=== PATIENT | female | born 1980 | race Hispanic/Latino ===

== ENCOUNTER 2016-06-21 18:18 | Emergency (ER) | payer SELFPAY ==
[~2016-06-21] VITALS: Ht 152.4 cm; Wt 59.0 kg
[~2016-06-21 18:18] MED LIST: ACYC200C PO; HYDR-700 PO; KETO-22 PO; MTC10T PO; ONDA-42 SL; PNT40TEC PO; POLY17PO23 PO; PRD20T PO; SULF1TAB38 PO; TRAM-21 PO; TRAM50TA2 PO
--- OUTSIDE RECORDS SUMMARY | 2016-06-21 18:23 | XMS REPORT ---
Author Author HEMA DAS Organization [employer] Address Unknown Phone Unavailable Care Team Providers Care Motor Lodge Clerk Name Role Phone HEMA DAS Unavailable Allergies No Known Allergies Problems Problem Type Condition Code Onset Dates Condition Status Problem Tobacco use Z72.0 Active Problem Tobacco abuse counseling Z71.6 Active Problem Routine gynecological examination Z01.419 Active Problem Insomnia G47.00 Active Problem Oral contraceptive pill surveillance Z30.41 Active Problem Premenstrual headache G43.829 Active Problem Environmental allergies Z91.09 Active Medications Medication Code System Code Instructions Start Date End Date Status Dosage Augmentin [facility] [address]-73 875-125 MG Orally every 12 hrs Jan 22, 2016 Feb 01, 2016 1 tablet Results No Known Results Summary Purpose eClinicalWorks Submission
[2016-06-21] MEDS ORDERED: FLEXERIL (18:31)
[2016-06-21] MEDS: DIAZEPAM 5 MG (VALIUM) TABLET PO ONE (18:45)
[2016-06-21] MEDS: KETOROLAC 60 MG/2 ML VIAL IM ONE (18:45)
--- NOTE | 2016-06-21 18:45 | ED Neck-Back Pain/Injury ---
General Chief Complaint: Head/Cervical Problems Stated Complaint: NECK PAIN Nursing Triage Note: L LATERAL NECK AND HEAD PAIN ONSET FRIDAY AFTER COOKING. WAS SEEN AT CLINIC ON 06/17 AND RECEIVED INJECTION AND RX FLEXERIL BUT STATES SHE'S NO BETTER AND MAYBE IS WORSE. Nursing Sepsis Screen: No Definite Risk Source of Information: Patient Exam Limitations: No Limitations History of Present Illness Time Seen by Provider: 18:42 Initial Comments to ER with left-sided head and neck pain. This began spontaneously during the day on Friday about a week ago. No injury, no fevers, no paresthesias. She's never had this happen before. She keeps her head tilted to the left side as that is a position of comfort. She was seen at [facility] on Friday and given a shot of something she does not know what and a prescription for Flexeril but denies any improvement. Location: C-Spine Timing/Duration: 1 Week Severity: Moderate Pain/Injury Location: Neck Associated Symptoms: denies symptoms Allergies and Home Medications Allergies Coded Allergies: No Known Drug Allergies (Verified , 01/13/07) Home Medications (Reported) Constitutional: see HPI EENTM: see HPI Respiratory: no symptoms reported Cardiovascular: no symptoms reported Genitourinary: no symptoms reported Musculoskeletal: see HPI muscle pain neck pain Skin: no symptoms reported Psychiatric/Neurological: No Symptoms Reported Past Kjxpfdj-Qdjocc-Ronuqf Hx Patient Social History Alcohol Use: Denies Use Recreational Drug Use: No Smoking Status: Never a Smoker Recent Foreign Travel: No Contact w/Someone Who Travel: No Recent Infectious Disease Expo: No Recent Hopitalizations: No Seasonal Allergies Seasonal Allergies: No Surgeries HX Surgeries: Yes (LEFT ANKLE FX/ORIF) Surgeries: Section, Orthopedic Respiratory Hx Respiratory Disorders: No Cardiovascular Hx Cardiac Disorders: No Neurological Hx Neurological Disorders: No Reproductive System Hx Reproductive Disorders: No Genitourinary Hx Genitourinary Disorders: No Genitourinary Disorders: Kidney Stones Gastrointestinal Hx Gastrointestinal Disorders: No Gastrointestinal Disorders: Chronic Constipation Musculoskeletal Hx Musculoskeletal Disorders: No Endocrine Hx Endocrine Disorders: No HEENT HX ENT Disorders: No Cancer Hx Cancer: No Psychosocial Hx Psychiatric Problems: Yes Behavioral Health Disorders: Anxiety Integumentary HX Skin/Integumentary Disorder: No Blood Transfusions Hx Blood Disorders: No Adverse Reaction to a Blood Tr: No Physical Exam Vital Signs Vital Sign - Last 12Hours 06/21/16 18:22 Temp 98.2 Pulse 100 Resp 18 B/P 147/93 Pulse Ox 98 Capillary Refill : Less Than 3 Seconds General Appearance: No Apparent Distress WD/WN HEENT: PERRL/EOMI TMs Normal Neck: Limited Range of Motion (keeps head flexed to the left shoulder. She is able to turn her head to the right but this causes increased pain.) Respiratory: Normal Breath Sounds No Accessory Muscle Use No Respiratory Distress Gastrointestinal: Normal Bowel Sounds Non Tender Soft Extremity: Normal Capillary Refill Normal Inspection Neurologic/Psychiatric: Alert Oriented x3 Skin: Normal Color Warm/Dry Progress/Results/Core Measures Results/Orders My Orders Orders-MANDEEP AMBRIZ APRN Ketorolac Injection (Toradol Injection) (06/21/16 18:45) Diazepam Tablet (Valium Tablet) (06/21/16 18:45) Ct Head/Cervical Spine Wo (06/21/16 18:50) Medications Given in ED Current Medications Medications Dose Ordered Sig/Kelly Route Start Time Stop Time Status Last Admin Dose Admin Diazepam 5 mg ONCE ONCE PO 06/21/16 18:45 06/21/16 18:46 DC 06/21/16 18:45 5 MG Ketorolac Tromethamine 60 mg ONCE ONCE IM 06/21/16 18:45 06/21/16 18:46 DC 06/21/16 18:45 60 MG Vital Signs/I&O Vital Sign - Last 12Hours 06/21/16 18:22 Temp 98.2 Pulse 100 Resp 18 B/P 147/93 Pulse Ox 98 Blood Pressure Mean: 111 Departure Impression Impression: Primary Impression: Torticollis Disposition: 01 HOME, SELF-CARE Condition: Stable Departure-Patient Inst. Decision time for Depature: 18:51 Referrals: [facility] (PCP/Family) Primary Care Physician Patient Instructions: Torticollis, Adult Add. Discharge Instructions: 1. Medication as directed. Stop the flexeril. 2. Return to ER for any concerns 3. See your doctor next week All discharge instructions reviewed with patient and/or family. Voiced understanding. Scripts Diazepam (Valium)5 Mg Tablet5 Mg PO Q8H PRN MUSCLE SPASMS #5 TAB Prov:MANDEEP AMBRIZ APRN 06/21/16 MANDEEP AMBRIZ APRN Jun 21, 2016 18:45
[2016-06-21] MEDS ORDERED: DIAZ5TAB PO (18:54)
--- NOTE | 2016-06-21 19:42 | Diagnostic Imaging Report ---
PROCEDURE: CT head and CT cervical spine without contrast. TECHNIQUE: Multiple contiguous axial images were obtained through the brain and cervical spine without the use of intravenous contrast. Sagittal and coronal reformations through the cervical spine were then performed. INDICATION: Left-sided head and neck pain. COMPARISON: CT head without contrast 01/29/2013. FINDINGS: CT head: No intracranial hemorrhage, mass effect, hydrocephalus or extra-axial fluid collections. No evidence of acute infarction. Osseous structures are intact. The visualized paranasal sinuses, mastoids and orbits are negative. CT cervical spine: Normal alignment. No fractures. Vertebral body heights are maintained. No substantial spondylotic change. No neural impingement on this noncontrast exam. The visualized paravertebral soft tissues are negative. IMPRESSION: Negative CT head and cervical spine. Dictated by: Dictated on workstation # [id number]
[2016-06-21 20:01] VITALS: BP 121/79
== END 2016-06-21 20:01 | disposition home or self-care (01) ==
LOC: EDUNIT# 18:18 → ER 18:20
DX: M43.6 Torticollis (principal)
CPT/HCPCS: 70450; 72125; 96372; 99282

== ENCOUNTER 2017-05-22 21:58 | Emergency (ER) | payer SELFPAY ==
[~2017-05-22 21:58] MED LIST changes: +DIAZ5TAB PO; +FLEXERIL
--- OUTSIDE RECORDS SUMMARY | 2017-05-25 07:54 | XMS REPORT ---
Author Author HEMA DAS Organization [employer] Address Unknown Phone Unavailable Care Team Providers Care Expediter Service Order Name Role Phone HEMA DAS Unavailable Allergies [...] Start Date End Date Status Dosage Augmentin [facility] [address]-40 875-125 MG Orally every 12 hrs Jan 22, 2016 Feb 01, 2016 1 tablet Results No Known Results Summary Purpose eClinicalWorks Submission
--- OUTSIDE RECORDS SUMMARY | 2017-05-25 07:54 | XMS REPORT ---
Author Author DAS HEMA [facility] Address [address] [place] [address] Care Team Providers Care Airport Shuttle Driver Name Role Phone HEMA DAS Unavailable PROBLEMS Type Condition ICD9-CM Code LSD98-QG Code Onset Dates Condition Status SNOMED Code Problem Oral contraceptive pill surveillance Z30.41 Active 019839422 Assessment Routine gynecological examination Z01.419 Dec, Active 184859745 Problem Routine gynecological examination Z01.419 Active 806403645 Problem Tobacco use Z72.0 Active 723132143 Problem Environmental allergies Z91.09 Active 035000444 Problem Insomnia G47.00 Active 696149909 Problem Tobacco abuse counseling Z71.6 Active 52363049 Problem Premenstrual headache G43.829 Active 14213894 ALLERGIES Substance Reaction Event Type Date Status N.K.D.A. Unknown Non Drug Allergy Dec, Unknown SOCIAL HISTORY No smoking Hx information available PLAN OF CARE VITAL SIGNS Height 58 in 2016-01-08 Weight 145 lbs 2016-01-08 Heart Rate 80 bpm 2016-01-08 Respiratory Rate 17 2016-01-08 BMI 30.30 kg/m2 2016-01-08 Blood pressure systolic 118 mmHg 2016-01-08 Blood pressure diastolic 88 mmHg 2016-01-08 MEDICATIONS Medication Instructions Dosage Frequency Start Date End Date Duration Status Drospirenone-Ethinyl Estradiol 3-0.03 MG Orally Once a day 1 tablet 24h 10 Sep, 2014 28 days Active Mxxvdshwqr-ITJL-Iqmciypb 50-325-40 MG Orally every 4 hrs 1 tablet as needed 4h Dec, Active RESULTS Name Result Date Reference Range TRICHOMONAS (IN HOUSE) 2016-01-08 TRICHOMONAS negative + Control + Lot # [id number] Exp date 12/2016 BACTERIAL VAGINOSIS (IN HOUSE) 2016-01-08 RESULTS negative Control + Lot # [id number] Exp date 06/2016 PAP TEST, HPV IF ASCUS 2016-01-08 DIAGNOSIS: Specimen adequacy: Clinician provided ICD10: Performed by: . . Note: . CULTURE, GENITAL 2016-01-08 Genital Culture, Routine Preliminary report Result 1 Gram negative rods PDF Report 2016-01-08 PDF Report1 LCLS CULTURE, GENITAL 2016-01-08 Genital Culture, Routine Final report Result 1 Escherichia coli Result 2 Antimicrobial Susceptibility GC/CHLAM PROBE (STATE) 2016-01-08 CHLAMYDIA negative GC negative PROCEDURES Procedure Date Ordered Related Diagnosis Body Site Office Visit, Est Pt., Level 4 Jan 08, 2016 SPECIMEN HANDLING Jan 08, 2016 CULTURE, BACTERIA, OTHER Jan 08, 2016 No Charge Jan 08, 2016 TRICHOMONAS ASSAY W/OPTIC Jan 08, 2016 CAMPOS VAG, DNA, DIR PROBE Jan 08, 2016 IMMUNIZATIONS No Known Immunizations
--- OUTSIDE RECORDS SUMMARY | 2017-05-25 07:54 | XMS REPORT ---
Author HEMA Hwang Organization [employer] Address Unknown Phone Unavailable Care Team Providers Care Paintless Dent Repair Technician Name Role Phone HEMA DAS Unavailable Allergies [...] Instructions Start Date End Date Status Dosage Diflucan [facility] [address]-09 100 MG Orally Three times a Week(Friday, friday, and Friday) Feb 05, 2016 Feb 15, 2016 1 tablet Results No Known Results Summary Purpose eClinicalWorks Submission
--- OUTSIDE RECORDS SUMMARY | 2017-05-25 07:54 | XMS REPORT ---
Author Author GISSELLE BANG [facility] eClinical[employer] Address Unknown Phone Unavailable Care Team Providers Care Inspector Returned Materials Name Role Phone GISSELLE BANG Unavailable Allergies, Adverse Reactions, Alerts Substance Reaction Event Type N.K.D.A. Info Not Available Non Drug Allergy Problems Problem Type Condition Code Onset Dates Condition Status Assessment Urinary frequency R35.0 Active Assessment Vaginal irritation N89.8 Active Problem Oral contraceptive pill surveillance Z30.41 Active Assessment Oral contraceptive pill surveillance Z30.41 Active Assessment Routine screening for STI (sexually transmitted infection) Z11.3 Active Assessment Right lower quadrant abdominal pain R10.31 Active Medications Medication Code System Code Instructions Start Date End Date Status Dosage Naprosyn [facility] [address]-96 375 MG Orally Twice a day 1 tablet as needed Macrobid [facility] [address]-96 100 MG Orally every 12 hrs Apr 05, 2015Mar 1 capsule with food Procedures Procedure Coding System Code Date URINE CULTURE/COLONY COUNT CPT-4 49224 Apr 05, 2015 CULTURE, BACTERIA, OTHER CPT-4 62352 Apr 05, 2015 URINALYSIS, AUTO, W/O SCOPE CPT-4 53019 Apr 05, 2015 TRICHOMONAS ASSAY W/OPTIC CPT-4 79455 Apr 05, 2015 No Charge CPT-4 98807 Apr 05, 2015 Office Visit, Est Pt., Level 4 CPT-4 61759 Apr 05, 2015 Vital Signs Date/Time: Apr 05, 2015 Temperature 98.0 F Weight 140.6 lbs Height 58 in BMI 29.38 Index Blood Pressure Diastolic 70 mmHg Blood Pressure Systolic 106 mmHg Cardiac Monitoring Heart Rate 76 bpm Results No Known Results Summary Purpose eClinicalWorks Submission
--- OUTSIDE RECORDS SUMMARY | 2017-05-25 07:55 | XMS REPORT ---
Author HEMA Hwang [facility] eClinicalWorks Address Unknown Phone Unavailable Care Team Providers Care Child Nutrition Director Name Role Phone HEMA DAS Unavailable Allergies No Known Allergies Problems Problem Type Condition Code Onset Dates Condition Status Problem Insomnia G47.00 Active Problem Oral contraceptive pill surveillance Z30.41 Active Problem Environmental allergies Z91.09 Active Assessment Insomnia G47.00 Active Assessment Urinary frequency R35.0 Active Assessment Environmental allergies Z91.09 Active Medications Medication Code System Code Instructions Start Date End Date Status Dosage Drospirenone-Ethinyl Estradiol [facility] [address]-44 3-0.03 MG Orally Once a day September 21, 2014 1 tablet Diflucan [facility] [address]-64 100 MG Orally July 31, 2015 August 10, 2015 1 tablet Claritin-D 12 Hour [facility] [address]-48 5-120 MG Orally every 12 hrs JulyAugust 30, 2015 1 tablet as needed Amitriptyline HCl [facility] [address]-22 25 MG Orally Once a day at bedtime July 31, 2015 1 tablet Procedures Procedure Coding System Code Date GLYCATED HEMOGLOBIN TEST CPT-4 00439 July 31, 2015 Office Visit, Est Pt., Level 4 CPT-4 10439 July 31, 2015 URINALYSIS, AUTO, W/O SCOPE CPT-4 05107 July 31, 2015 Vital Signs Date/Time: July 31, 2015 Temperature 97.2 F Weight 142.6 lbs Height 58 in BMI 29.80 Index Blood Pressure Diastolic 76 mmHg Blood Pressure Systolic 118 mmHg Cardiac Monitoring Heart Rate 76 bpm Results Name Result Date Reference Range Unit Abnormality Flag A1C (IN HOUSE) ----A1C IN HOUSE 5.0 20150731 4.3 - 5.6 % ----Lot [id number] ----Exp date 20150731 UA LONG DIP (IN HOUSE) ----YANA 1+ 20150731 ----GLU Neg 20150731 ----SG >1.030 20150731 ----KET Neg 20150731 ----pH 5.5 20150731 ----Protein 1+ 20150731 ----BLO Neg [id number] ----PHIL Neg 20150731 ----Color yellow 20150731 ----Odor strong 20150731 ----Exp date 20150731 ----URO 0.2 20150731 ----NIT Neg 20150731 ----Clarity clear 20150731 ----Lot # [id number] Summary Purpose eClinicalWorks Submission
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
== END 2017-05-22 22:34 | disposition left against medical advice (07) ==
LOC: EDUNIT# 21:58 → ER 22:00
DX: R53.1 Weakness (principal); R20.0 Anesthesia of skin; R42 Dizziness and giddiness; H57.8 Other specified disorders of eye and adnexa

== ENCOUNTER 2018-01-31 10:28 | Emergency (ER) | payer SELFPAY ==
[~2018-01-31] VITALS: Ht 144.8 cm; Wt 65.3 kg
--- NOTE | 2018-01-31 11:12 | ED Back Pain ---
General Chief Complaint: Lower Extremity Stated Complaint: BURNING DOWN LEFT LEG Nursing Triage Note: ARRIVED VIA AMB TO ROOM 07. COMPLAINS OF PAIN/BURNING STARTING IN LEFT BUTTOCK ET RADIATES DOWN LEFT LEG FOR APPX 3MONTHS THAT IS WORSE THIS PAST WEEK. Nursing Sepsis Screen: No Definite Risk Source of Information: Patient Exam Limitations: No Limitations History of Present Illness Date Seen by Provider: Jan 31, 2018 Time Seen by Provider: 11:10 Initial Comments Patient is a 37-year-old female who presents to the emergency room with complaints of low back pain, burning sensation in her left buttocks that radiates down her left leg for approximately for the past 3 months. She reports the pain became intolerable over the past week. She denies loss of bowel or bladder, or numbness and tingling to her genital area. Location: Lumbar Spine Severity: Moderate Radiation: Buttocks, Lower Legs (left leg), Upper Legs (left leg) Method of Injury: Unknown Associated Symptoms: numbness in legs/feet, tingling in legs/feet, lower back pain; No loss of bladder control, No loss of bowel control Allergies and Home Medications Allergies Coded Allergies: No Known Drug Allergies (Verified , 01/13/07) Home Medications Cyclobenzaprine HCl 10 Mg Tablet, 10 MG PO TID Prescribed by: TAYLOR WORRELL on 01/31/18 1148 Diazepam 5 Mg Tablet, 5 MG PO Q8H PRN for MUSCLE SPASMS Prescribed by: MANDEEP AMBRIZ on 06/21/16 185 Prednisone 20 Mg Tab, 40 MG PO DAILY Prescribed by: TAYLOR WORRELL on 01/31/18 1148 Patient Home Medication List Home Medication List Reviewed: Yes Review of Systems Constitutional: see HPI; No chills, No fever : No Musculoskeletal: no symptoms reported, back pain (low back pain) Psychiatric/Neurological: See HPI, Numbness (radiates down left leg) All Other Systems Reviewed Negative Unless Noted: Yes Past Zfqnrll-Mtyqzr-Zmjxyg Hx Past Med/Social Hx: Reviewed Nursing Past Med/Soc Hx Patient Social History Recent Foreign Travel: No Contact w/Someone Who Travel: No Recent Infectious Disease Expo: No Recent Hopitalizations: No Seasonal Allergies Seasonal Allergies: No Past Medical History Section, Orthopedic Reproductive Disorders: No Kidney Stones Chronic Constipation Anxiety Adverse Reaction/Blood Tranf: No Family Medical History Reviewed Nursing Family Hx Physical Exam Vital Signs Vital Signs - First Documented 01/31/18 10:56 Temp 98.0 Pulse 81 Resp 16 B/P (MAP) 124/67 (86) Pulse Ox 97 O2 Delivery Room Air Capillary Refill : Less Than 3 Seconds Height, Weight, BMI Height: 4'9.00" Weight: 144lbs. oz. 65.528630fp; BMI Method:Stated General Appearance: No Apparent Distress, WD/WN Neck: Full Range of Motion, Normal Inspection, Non Tender, Supple Cardiovascular: Regular Rate, Rhythm, No Edema, No Gallop, No JVD, No Murmur, Normal Peripheral Pulses Respiratory: Chest Non Tender, Lungs Clear, Normal Breath Sounds, No Accessory Muscle Use, No Respiratory Distress, Accessory Muscle Use Back: Normal Inspection, No CVA Tenderness, No Vertebral Tenderness Neurologic/Psychiatric: Alert, Oriented x3, Normal Mood/Affect Skin: Normal Color, Warm/Dry Progress/Results/Core Measures Results/Orders My Orders Orders - GMTAYLOR Ketorolac Injection (Toradol Injection) (01/31/18 11:15) Orphenadrine Injection (Norflex Injectio (01/31/18 11:15) Prednisone Tablet (Deltasone Tablet) (01/31/18 11:15) Medications Given in ED Vital Signs/I&O 01/31/18 01/31/18 10:56 11:52 Temp 98.0 Pulse 81 81 Resp 16 16 B/P (MAP) 124/67 (86) 124/67 (86) Pulse Ox 97 97 O2 Delivery Room Air Room Air Blood Pressure Mean: 86 Progress Progress Note : Time: 11:40 Progress Note I have seen and evaluated the patient. She is pain free after medication administration. She agrees with plan of care, plans for discharge, Return precautions were given. Voices no questions or concerns. Departure Impression Primary Impression: Sciatica Disposition: 01 HOME, SELF-CARE Condition: Stable/Unchanged Departure-Patient Inst. Decision time for Depature: 11:45 Referrals: [facility] (PCP/Family) Primary Care Physician Patient Instructions: Sciatica (DC), Sciatica Exercises Add. Discharge Instructions: Take medications as directed. You may use ibuprofen and Tylenol as directed by the bottle for pain relief. Follow-up with [facility] within 1 week for recheck. Return back to the emergency room for any worsening symptoms or concerns as needed. All discharge instructions reviewed with patient and/or family. Voiced understanding. Scripts Prednisone (Prednisone) 20 Mg Tab 40 MG PO DAILY for 4 Days, #8 TAB Prov: TAYLOR WORRELL 01/31/18 Cyclobenzaprine HCl (Cyclobenzaprine HCl) 10 Mg Tablet 10 MG PO TID for Spasms, #14 TAB Prov: TAYLOR WORRELL 01/31/18 TAYLOR WORRELL Jan 31, 2018 11:12
[2018-01-31] MEDS ORDERED: ORPHENADRINE 60 MG/2 ML (NORFLEX) AMP IM ONE (11:15)
[2018-01-31] MEDS ORDERED: KETOROLAC 60 MG/2 ML VIAL IM ONE (11:15)
[2018-01-31] MEDS ORDERED: predniSONE 20 MG TAB PO ONE (11:15)
[2018-01-31] MEDS ORDERED: PRD20T PO (11:48)
[2018-01-31] MEDS ORDERED: CYCL10TA9 PO (11:48)
[2018-01-31 11:52] VITALS: BP 124/67
== END 2018-01-31 11:52 | disposition home or self-care (01) ==
LOC: EDUNIT# 10:28 → ER 10:30
DX: M54.42 Lumbago with sciatica, left side (principal); F41.9 Anxiety disorder, unspecified; Z79.52 Long term (current) use of systemic steroids; Z98.890 Other specified postprocedural states; Z87.442 Personal history of urinary calculi; Z87.19 Personal history of other diseases of the digestive system
CPT/HCPCS: 99284

== ENCOUNTER 2021-05-17 16:46 | Emergency (ER) | payer SELFPAY ==
[~2021-05-17] VITALS: Ht 147 cm; Wt 68.0 kg
[~2021-05-17 16:46] MED LIST changes: +CYCL10TA25 PO
[2021-05-17 16:48] VITALS: BP 151/102
[2021-05-17] MEDS ORDERED: ASPIRIN 81 MG CHEW (CHILDREN'S ASA) PO ONE (17:15)
[2021-05-17] MEDS ORDERED: ALPRAZolam 0.25 MG (XANAX) TAB PO ONE (17:15)
--- NOTE | 2021-05-17 17:22 | ED Neurological Problem ---
General Chief Complaint: Cardiac/General Problems Stated Complaint: CHEST PRESSURE/PAIN Nursing Triage Note: ARRIVED VIA AMB WITH COMPLAINTS OF CHEST PAIN X3-4 HOURS. ALSO COMPLAINS OF PALPITTIONS AND RIGHT ARM PAIN. Source: patient Exam Limitations: no limitations (MANDEEP AMBRIZ APRN) History of Present Illness Date Seen by Provider: May 17, 2021 Time Seen by Provider: 17:20 Initial Comments To ER by private vehicle accompanied by friend with reports of central chest pain and palpitations since about noon today. This actually started with right arm tingling in the fingers. That is still present but a little better. She also has some right leg heaviness. She has a right-sided headache. She is tearful on arrival. Family reports that she has a lot of stress at home. Timing/Duration: 4-6 hours Severity: moderate Associated Symptoms: denies symptoms (MANDEEP AMBRIZ APRN) Allergies and Home Medications Allergies Coded Allergies: No Known Drug Allergies (Verified , 01/13/07) Patient Home Medication List Home Medication List Reviewed: Yes (MANDEEP AMBRIZ APRN) Cyclobenzaprine HCl (Cyclobenzaprine HCl) 10 Mg Tablet, 10 MG PO TID Prescribed by: TAYLOR WORRELL on 01/31/18 1148 Diazepam (Valium) 5 Mg Tablet, 5 MG PO Q8H PRN for MUSCLE SPASMS Prescribed by: MANDEEP AMBRIZ on 06/21/16 1854 Prednisone (Prednisone) 20 Mg Tab, 40 MG PO DAILY Prescribed by: TAYLOR WORRELL on 01/31/18 1148 [Flexeril] , (Reported) Entered as Reported by: SERVANDO MOHAN on 06/21/16 1831 Review of Systems Review of Systems Constitutional: see HPI Eyes: No Symptoms Reported Ears, Nose, Mouth, Throat: no symptoms reported Respiratory: no symptoms reported Cardiovascular: no symptoms reported Genitourinary: no symptoms reported Musculoskeletal: no symptoms reported Skin: no symptoms reported Psychiatric/Neurological: See HPI, Anxiety, Headache Endocrine: No Symptoms Reported Hematologic/Lymphatic: No Symptoms Reported (MANDEEP AMBRIZ APRN) Past Yisojzp-Mjlqrl-Kqtwgb Hx Patient Social History Tobacco Use?: Yes Smoking Status: Current Everyday Smoker Alcohol Use?: No (MANDEEP AMBRIZ APRN) Immunizations Up To Date Second COVID19 Vaccination Chepe: 2 WEEKS AGO COVID19 Vaccine Kennel Assistant: MERY (MANDEEP AMBRIZ APRN) Seasonal Allergies Seasonal Allergies: No (MANDEEP AMBRIZ APRN) Past Medical History Surgeries: Yes (LEFT ANKLE FX/ORIF) Section, Orthopedic Respiratory: No Cardiac: No Neurological: No Reproductive Disorders: No Kidney Stones Gastrointestinal: No Chronic Constipation Musculoskeletal: No Endocrine: No Cancer: No Psychosocial: Yes Anxiety Integumentary: No Blood Disorders: No Adverse Reaction/Blood Tranf: No (MANDEEP AMBRIZ APRN) Physical Exam Vital Signs Vital Signs - First Documented 05/17/21 16:48 Temp 36.5 Pulse 96 Resp 16 B/P (MAP) 151/102 (118) Pulse Ox 97 O2 Delivery Room Air (NINA BANSAL MD) Vital Signs Capillary Refill : Less Than 3 Seconds (MANDEEP AMBRIZ APRN) Height, Weight, BMI Height: 4'9.00" Weight: 144lbs. oz. 65.044615gg; 31.00 BMI Method:Stated General Appearance: WD/WN, no apparent distress, other (He is sinus rhythm in the 80s on the monitoring manager. Blood pressure 155/96.) HEENT: PERRL/EOMI, normal ENT inspection, TMs normal Neck: non-tender, full range of motion Respiratory: normal breath sounds, no respiratory distress, no accessory muscle use Gastrointestinal: normal bowel sounds, non tender, soft Extremities: normal range of motion, non-tender Neurologic/Psychiatric: alert, normal mood/affect, oriented x 3 Crainal Nerves: normal hearing, normal speech, PERRL Skin: normal color, warm/dry (MANDEEP AMBRIZ APRN) Stroke Onset of Symptoms Date of Onset of Symptoms: May 17, 2021 Time of Symptom Onset: 12:00 Onset of Symptoms: Yes Symptoms onset unknown: No (MANDEEP AMBRIZ APRN) NIH Stroke Scale Assessment Select: Initial Level of Consciousness: 0=Alert (0), Level of Consciousness- Questions: 0=Answers both month/age (0), LOC Commands: 0=Performs both tasks (0), Visual Encarnacion: 0=No visual loss (0), Facial Movement (Facial Paresis): 0=Normal symmetrical mnt (0), Motor Function-Arms Right: 1=Drift (1), Motor Function-Arms Left: 0=No drift (0), Motor Function-Legs Right: 0=No drift (0), Motor Function-Legs Left: 0=No drift (0), Limb Ataxia: 0=Absent (0), Sensory: 1=Mild to Moderate loss (1), Best Language: 0=No aphasia (0), Dysarthria: 0=Normal (0), Extinction & Inattention: 0=No abnormality (0), Total: 2 Stroke Thrombolytic Exclusion Age 18 or Over: Yes Acute intenal hemorrhage: No History of CVA: No Uncontrolled Coagulation Defec: No Intracranial Hemorrhage: No Severe Hypertension: No GI or Bleed: No Subarachnoid Hemorrhage: No Intracranial Neoplasm/Aneurysm: No Oral Anticoagulants: No Surgery or Trauma: No Puncture of Non-Compressible V: No Recent CPR: No Diabetic Hemorrhagic Retinopat: No Organ Biopsy: No Recent Obstetric Delivery: No Glucose: No Significant Hepatic Dysfunctio: No NIH Stoke Scale >22: No Bacterial Endocarditis: No Pericarditis: No Improving Symptoms: No Platelets: No TPA Contraindication: No (MANDEEP AMBRIZ APRN) Progress/Results/Core Measures Results/Orders Lab Results Laboratory Tests Test 05/17/21 16:54 05/17/21 17:30 Range/Units White Blood Count 8.3 4.3-11.0 10^3/uL Red Blood Count 4.41 3.80-5.11 10^6/uL Hemoglobin 13.7 11.5-16.0 g/dL Hematocrit 40 35-52 % Mean Corpuscular Volume 91 80-99 fL Mean Corpuscular Hemoglobin 31 25-34 pg Mean Corpuscular Hemoglobin Concent 34 32-36 g/dL Red Cell Distribution Width 11.9 10.0-14.5 % Platelet Count 314 130-400 10^3/uL Mean Platelet Volume 8.4 L 9.0-12.2 fL Immature Granulocyte % (Auto) 0 % Neutrophils (%) (Auto) 61 42-75 % Lymphocytes (%) (Auto) 30 12-44 % Monocytes (%) (Auto) 6 0-12 % Eosinophils (%) (Auto) 2 0-10 % Basophils (%) (Auto) 0 0-10 % Neutrophils # (Auto) 5.1 1.8-7.8 10^3/uL Lymphocytes # (Auto) 2.5 1.0-4.0 10^3/uL Monocytes # (Auto) 0.5 0.0-1.0 10^3/uL Eosinophils # (Auto) 0.2 0.0-0.3 10^3/uL Basophils # (Auto) 0.0 0.0-0.1 10^3/uL Immature Granulocyte # (Auto) 0.0 0.0-0.1 10^3/uL Prothrombin Time 12.3 12.2-14.7 SEC INR Comment 0.9 0.8-1.4 Activated Partial Thromboplast Time 30 24-35 SEC D-Dimer <= 0.27 0.00-0.49 UG/ML Sodium Level 135 135-145 MMOL/L Potassium Level 3.6 3.6-5.0 MMOL/L Chloride Level 107 98-107 MMOL/L Carbon Dioxide Level 18 L 21-32 MMOL/L Anion Gap 10 5-14 MMOL/L Blood Urea Nitrogen 15 7-18 MG/DL Creatinine 0.81 0.60-1.30 MG/DL Estimat Glomerular Filtration Rate 94 BUN/Creatinine Ratio 19 Glucose Level 187 H 70-105 MG/DL Calcium Level 8.5 8.5-10.1 MG/DL Corrected Calcium 8.8 8.5-10.1 MG/DL Magnesium Level 1.8 1.6-2.4 MG/DL Total Bilirubin 0.3 0.1-1.0 MG/DL Aspartate Amino Transf (AST/SGOT) 12 5-34 U/L Alanine Aminotransferase (ALT/SGPT) 10 0-55 U/L Alkaline Phosphatase 67 40-136 U/L Myoglobin 14.6 10.0-92.0 NG/ML Troponin I < 0.028 <0.028 NG/ML B-Type Natriuretic Peptide 14.2 <100.0 PG/ML Total Protein 7.1 6.4-8.2 GM/DL Albumin 3.6 3.2-4.5 GM/DL Serum Test, Qualitative NEGATIVE NEGATIVE Urine Color ORANGE Urine Clarity CLEAR Urine pH 5.0 5-9 Urine Specific [place] 1.025 H 1.016-1.022 Urine Protein 1+ H NEGATIVE Urine Glucose (UA) TRACE H NEGATIVE Urine Ketones NEGATIVE NEGATIVE Urine Nitrite POSITIVE H NEGATIVE Urine Bilirubin NEGATIVE NEGATIVE Urine Urobilinogen 4.0 < = 1.0 MG/DL Urine Leukocyte Esterase NEGATIVE NEGATIVE Urine RBC (Auto) 1+ H NEGATIVE Urine RBC 0-2 /HPF Urine WBC 2-5 /HPF Urine Squamous Epithelial Cells 5-10 /HPF Urine Crystals NONE /LPF Urine Bacteria FEW H /HPF Urine Casts NONE /LPF Urine Mucus NEGATIVE /LPF Urine Culture Indicated YES (NINA BANSAL MD) Vital Signs/I&O 05/17/21 16:48 Temp 36.5 Pulse 96 Resp 16 B/P (MAP) 151/102 (118) Pulse Ox 97 O2 Delivery Room Air (NINA BANSAL MD) Blood Pressure Mean: 118 Departure Communication (Admissions) Family Conversation 193-heart rate 80 sinus blood pressure down to 140/90. She no longer has any tingling in the right arm or weakness of the arm. No longer has headache. Overall feels much better. We will send her on home and she agrees to return for any worsening or recurrent symptoms. NAME: SHANNON VELAZQUEZ [facility] REC#: [id number] PT STATUS: REG ER : 1980 PHYSICIAN: MANDEEP AMBRIZ APRN ADMIT DATE: 05/17/21/ER Draft Date of Exam:05/17/21 CT HEAD WO-R/O STROKE PROCEDURE: CT head wo r/o stroke. TECHNIQUE: Multiple contiguous axial images were obtained through the brain without the use of intravenous contrast. Auto Exposure Controls were utilized during the CT exam to meet ALARA standards for radiation dose reduction. INDICATION: 40-year-old female, chest pain x3 to 4 hours, palpitations, right arm pain. CORRELATION: None FINDINGS: There is no midline shift or mass effect. The ventricles and sulci are unremarkable. No evidence for acute intracranial hemorrhage, abnormal extra-axial fluid collections or cerebral edema is present. The basilar cisterns are unremarkable. The bony calvarium is intact. Probable small cyst or polyp left maxillary sinus. The visualized paranasal sinuses and mastoid air cells are otherwise clear. IMPRESSION: Negative appearing noncontrast CT of the head. Dictated on workstation # [id number] Dict: 05/17/211811 Trans: 05/17/21 181 DO [id number] Interpreted by: CARL POLLOCK DO Electronically signed by: (MANDEEP AMBRZI APRN) Impression Primary Impression: Anxiety Additional Impression: Paresthesia Disposition: HOME, SELF-CARE Condition: Stable Departure-Patient Inst. Decision time for Depature: 18:35 (MANDEEP AMBRIZ APRN) Referrals: [facility] [place] (PCP/Family) Primary Care Physician Patient Instructions: Anxiety, Adult ED Add. Discharge Instructions: 1. Return to ER for any concerns. Follow-up with your doctor next week. ATTENDING PHYSICIAN NOTE: I was physically present as attending physician in the emergency department during the care of this patient, but I was not directly involved in the decision making or delivery of care for this patient. (NINA BANSAL MD) MANDEEP AMBRIZ APRN May 17, 2021 17:22 NINA BANSAL MD May 19, 2021 06:41
[2021-05-17] MEDS ORDERED: NS 100 ML (IVPB) BAG IV ONE (17:30)
[2021-05-17] MEDS ORDERED: HOLD METFORMIN - RECEIVED CONTRAST 20 ML VIAL IV SCH (17:30)
[2021-05-17] MEDS ORDERED: IOHEXOL 350 MG/ML 100 ML (OMNIPAQUE 350) VIAL IV ONE (17:30)
[2021-05-17 17:38] LABS: BASOPHILS % (AUTO) 0 % (0-10); EOSINOPHILS # (AUTO) 0.2 10^3/uL (0.0-0.3); EOSINOPHILS % (AUTO) 2 % (0-10); HEMATOCRIT 40 % (35-52); HEMOGLOBIN 13.7 g/dL (11.5-16.0); LYMPHOCYTES # (AUTO) 2.5 10^3/uL (1.0-4.0); LYMPHOCYTES % (AUTO) 30 % (12-44); MEAN CORPUSCULAR HEMOGLOBIN 31 pg (25-34); MEAN CORPUSCULAR HGB CONC 34 g/dL (32-36); MEAN CORPUSCULAR VOLUME 91 fL (80-99); MEAN PLATELET VOLUME 8.4 fL (9.0-12.2); MONOCYTES # (AUTO) 0.5 10^3/uL (0.0-1.0); MONOCYTES % (AUTO) 6 % (0-12); NEUTROPHILS # (AUTO) 5.1 10^3/uL (1.8-7.8); NEUTROPHILS % (AUTO) 61 % (42-75); PLATELET COUNT 314 10^3/uL (130-400); WHITE BLOOD COUNT 8.3 10^3/uL (4.3-11.0)
[2021-05-17 17:39] LABS: BILIRUBIN,URINE NEGATIVE (NEGATIVE); CLARITY,URINE CLEAR; COLOR,URINE ORANGE; GLUCOSE, URINE (UA) TRACE (NEGATIVE); KETONES,URINE NEGATIVE (NEGATIVE); LEUKOCYTE ESTERASE ,URINE NEGATIVE (NEGATIVE); NITRITE,URINE POSITIVE (NEGATIVE); PROTEIN,URINE 1+ (NEGATIVE)
[2021-05-17 17:44] LABS: INR 0.9 (0.8-1.4); PROTHROMBIN TIME PATIENT 12.3 SEC (12.2-14.7)
[2021-05-17 17:51] LABS: BACTERIA,URINE FEW /HPF; RBC,URINE 0-2 /HPF
[2021-05-17 17:52] LABS: ALBUMIN 3.6 GM/DL (3.2-4.5); POTASSIUM 3.6 MMOL/L (3.6-5.0)
[2021-05-17 17:53] LABS: CALCIUM 8.5 MG/DL (8.5-10.1)
[2021-05-17 17:54] LABS: TOTAL PROTEIN 7.1 GM/DL (6.4-8.2)
[2021-05-17 17:56] LABS: BILIRUBIN,TOTAL 0.3 MG/DL (0.1-1.0)
[2021-05-17 17:58] LABS: CREATININE SERUM 0.81 MG/DL (0.60-1.30)
[2021-05-17 18:01] LABS: MAGNESIUM 1.8 MG/DL (1.6-2.4)
--- NOTE | 2021-05-17 18:14 | Diagnostic Imaging Report ---
INDICATION: Chest pain. COMPARISON: 08/31/2014. FINDINGS: Single frontal view of the chest demonstrates normal heart size and pulmonary vascularity. The lungs are well aerated and clear. No large pleural effusion or pneumothorax is seen. The visualized osseous structures show no acute abnormalities. IMPRESSION: No acute cardiopulmonary process. Dictated by: Dictated on workstation # [id number]
--- NOTE | 2021-05-17 18:14 | Diagnostic Imaging Report ---
PROCEDURE: CT head wo r/o stroke. TECHNIQUE: Multiple contiguous axial images were obtained through the brain without the use of intravenous contrast. Auto Exposure Controls were utilized during the CT exam to meet ALARA standards for radiation dose reduction. INDICATION: 40-year-old female, chest pain x3 to 4 hours, palpitations, right arm pain. CORRELATION: None FINDINGS: There is no midline shift or mass effect. The ventricles and sulci are unremarkable. No evidence for acute intracranial hemorrhage, abnormal extra-axial fluid collections or cerebral edema is present. The basilar cisterns are unremarkable. The bony calvarium is intact. Probable small cyst or polyp left maxillary sinus. The visualized paranasal sinuses and mastoid air cells are otherwise clear. IMPRESSION: Negative appearing noncontrast CT of the head. Dictated by: Dictated on workstation # [id number]
--- NOTE | 2021-05-17 18:46 | Diagnostic Imaging Report ---
PROCEDURE: CT angiography of the head and CT angiography of the neck with and without contrast. TECHNIQUE: Contiguous noncontrast images were obtained from the skull base through the vertex. After intravenous contrast administration, helical CT angiography of the neck was performed. Source data was reformatted into 3D MIP projections. Delayed post contrast acquisition was also obtained. Auto Exposure Controls were utilized during the CT exam to meet ALARA standards for radiation dose reduction. INDICATION: 40-year-old female, right arm and leg weakness. Chest pain x3 to 4 hours. Heart palpitations. COMPARISON: None FINDINGS: There is prominent metallic streak artifact from dental catholic. CTA NECK: Aorta: Aortic arch is limited in evaluation with artifact present. Does appear relatively normal, with standard three vessel branching pattern. Right Common/Internal/External Carotid Artery: Patent and without significant stenosis. Left Common/Internal/External Carotid Artery: Patent and without significant stenosis. Vertebral arteries: Codominant. Patent and without significant stenosis. Non-vascular: No concerning cervical lymphadenopathy. The airway is patent. CTA HEAD: Anterior Circulation: The intracranial internal carotid arteries are patent. The bilateral middle cerebral arteries are patent and without stenosis. The anterior cerebral arteries are patent and without stenosis. Posterior Circulation: The bilateral intracranial segments of the vertebral arteries are patent. The basilar artery is patent and without stenosis. The posterior cerebral arteries are patent. Post Contrast Head: No concerning enhancement on delayed post-contrast imaging. IMPRESSION: 1. Negative CTA of the head. 2. Negative CTA of the neck. Dictated by: Dictated on workstation # [id number]
[2021-05-17] MEDS ORDERED: ALPRAZolam 0.25 MG (XANAX) TAB ONE (18:55)
== END 2021-05-17 19:58 | disposition home or self-care (01) ==
LOC: EDUNIT# 16:46 → ER 16:49
DX: F41.9 Anxiety disorder, unspecified (principal); R20.2 Paresthesia of skin; F17.290 Nicotine dependence, other tobacco product, uncomplicated
CPT/HCPCS: 36415; 70450; 70496; 70498; 71045; 80053; 81000; 83735; 83874; 83880; 84484; 84703; 85025; 85379; 85610; 85730; 87088; 93005; 93041

== ENCOUNTER 2022-06-18 17:27 | Emergency (ER) | payer SELFPAY ==
[~2022-06-18] VITALS: Ht 149.8 cm; Wt 68.0 kg
[2022-06-18] MEDS ORDERED: ASPIRIN 81 MG CHEW (CHILDREN'S ASA) PO ONE (18:00)
--- NOTE | 2022-06-18 18:12 | Diagnostic Imaging Report ---
INDICATION: Chest pain. COMPARISON: Exam compared to 05/17/2021. FINDINGS: The lungs are clear. There is no failure, effusion, or pneumothorax. IMPRESSION: No acute-appearing abnormality. Dictated by: Dictated on workstation # [id number]
[2022-06-18 18:13] LABS: BILIRUBIN,URINE NEGATIVE (NEGATIVE); CLARITY,URINE CLEAR; COLOR,URINE YELLOW; GLUCOSE, URINE (UA) NEGATIVE (NEGATIVE); KETONES,URINE NEGATIVE (NEGATIVE); LEUKOCYTE ESTERASE ,URINE TRACE (NEGATIVE); NITRITE,URINE NEGATIVE (NEGATIVE); PH,URINE 6.5 (5-9); PROTEIN,URINE NEGATIVE (NEGATIVE)
--- NOTE | 2022-06-18 18:20 | ED Cardiac General ---
History of Present Illness General Chief Complaint: COVID19 Suspect/Confirmed Stated Complaint: COVID + - CHEST PAIN Nursing Triage Note: PT BROUGHT IN BY [facility] FROM [facility] WITH COMPLAINT OF CP, SOA, AND COVID +. STATES SYMPTOMS STARTED THIS AM. GIVEN 324 ASA AT [facility]. NITROPASTE APPLIED BY EMS (MARCIO MERCADO) History of Present Illness Date Seen by Provider: Jun 18, 2022 Time Seen by Provider: 17:35 Initial Comments 42 year old female reports palpable anterior chest pain with SOA. She is COVID + and complains of pain over her entire body. I can palpate her chest, arms, cheek, or leg and she reports it hurts. She denies n/v/d, SOA, or diaphoresis. She resolved the first 2 COVID vaccines but did not has not received a booster. She was not started on medications for COVID by [facility]. She works at [employer]. Timing/Duration: 24 hours Prior CP/Workup: no prior chest pain NTG SL FREIGHT BOOKER: Yes ASA po FREIGHT BOOKER: Yes Associated Systoms: No Chest Pain; Cough; No Diaphoresis, No Fever/Chills; Headaches, Malaise; No Nausea/Vomiting, No Seizure, No Shortness of Air, No Syncope; Weakness (MARCIO MERCADO) Allergies and Home Medications Allergies Coded Allergies: No Known Drug Allergies (Verified , 01/13/07) Patient Home Medication List Home Medication List Reviewed: Yes (MARCIO MERCADO) Cyclobenzaprine HCl (Cyclobenzaprine HCl) 10 Mg Tablet, 10 MG PO TID Prescribed by: TAYLOR WORRELL on 01/31/18 1148 Diazepam (Valium) 5 Mg Tablet, 5 MG PO Q8H PRN for MUSCLE SPASMS Prescribed by: MANDEEP AMBRIZ on 06/21/16 185 Prednisone (Prednisone) 20 Mg Tab, 40 MG PO DAILY Prescribed by: TAYLOR WORRELL on 01/31/18 1148 [Flexeril] , (Reported) Entered as Reported by: SERVANDO MOHAN on 06/21/16 183 Review of Systems Review of Systems Constitutional: see HPI, chills, malaise, weakness Respiratory: No Symptoms Reported, See HPI Cardiovascular: No Symptoms Reported, See HPI Gastrointestinal: No Symptoms Reported, See HPI (MARCIO MERCADO) All Other Systems Reviewed Negative Unless Noted: Yes (MARCIO MERCADO) Past Xejmoqt-Zvflxd-Wzprqp Hx Patient Social History Tobacco Use?: Yes Tobacco type used: Cigarettes Smoking Status: Current Everyday Smoker Use of E-Cig and/or Vaping dev: No Substance use?: No Alcohol Use?: No Pt feels they are or have been: No (MARCIO MERCADO) Immunizations Up To Date First/Initial COVID19 Vaccinat: 2 WEEKS AGO Second COVID19 Vaccination Chepe: 2 WEEKS AGO Third COVID19 Vaccination Date: 2 WEEKS AGO (MARCIO MERCADO) Seasonal Allergies Seasonal Allergies: No (MARCIO MERCADO) Past Medical History Surgeries: Yes (LEFT ANKLE FX/ORIF) Section, Orthopedic Respiratory: No Cardiac: No Neurological: No Reproductive Disorders: No Kidney Stones Gastrointestinal: No Chronic Constipation Musculoskeletal: No Endocrine: No Cancer: No Psychosocial: Yes Anxiety Integumentary: No Blood Disorders: No Adverse Reaction/Blood Tranf: No (MARCIO MERCADO) Family Medical History Reviewed Nursing Family Hx (MARCIO MERCADO) Physical Exam Vital Signs Vital Signs - First Documented 06/18/22 17:29 Temp 38.0 Pulse 92 Resp 23 B/P (MAP) 137/96 (110) Pulse Ox 98 O2 Delivery Room Air (NINA BANSAL MD) Vital Signs Capillary Refill : Less Than 3 Seconds (MARCIO MERCADO) Height, Weight, BMI Height: 4'9.00" Weight: 144lbs. oz. 65.599835ll; 30.00 BMI Method:Stated General Appearance: WD/WN, Mild Distress HEENT: PERRL/EOMI, TMs Normal, Normal ENT Inspection, Pharynx Normal Neck: Full Range of Motion, Normal Inspection, Non Tender, Supple Respiratory: Lungs Clear, Normal Breath Sounds, Other (Chest wall tender, right and left. Along with anywhere I palpate on her body being tender. ) Cardiovascular: Regular Rate, Rhythm, No Edema, No Murmur Gastrointestinal: Normal Bowel Sounds, Non Tender, Soft Neurologic/Psychiatric: Alert, Oriented x3, No Motor/Sensory Deficits, Normal Mood/Affect Skin: Normal Color, Warm/Dry (MARCIO MERCADO) Progress/Results/Core Measures Results/Orders Lab Results Laboratory Tests Test 06/18/22 18:00 06/18/22 18:05 Range/Units Urine Color YELLOW Urine Clarity CLEAR Urine pH 6.5 5-9 Urine Specific [place] 1.015 L 1.016-1.022 Urine Protein NEGATIVE NEGATIVE Urine Glucose (UA) NEGATIVE NEGATIVE Urine Ketones NEGATIVE NEGATIVE Urine Nitrite NEGATIVE NEGATIVE Urine Bilirubin NEGATIVE NEGATIVE Urine Urobilinogen 0.2 < = 1.0 MG/DL Urine Leukocyte Esterase TRACE H NEGATIVE Urine RBC (Auto) TRACE-I H NEGATIVE Urine RBC RARE /HPF Urine WBC 2-5 /HPF Urine Squamous Epithelial Cells 10-25 H /HPF Urine Crystals NONE /LPF Urine Bacteria FEW H /HPF Urine Casts NONE /LPF Urine Mucus SMALL H /LPF Urine Culture Indicated NO White Blood Count 7.1 4.3-11.0 10^3/uL Red Blood Count 4.20 3.80-5.11 10^6/uL Hemoglobin 12.9 11.5-16.0 g/dL Hematocrit 37 35-52 % Mean Corpuscular Volume 88 80-99 fL Mean Corpuscular Hemoglobin 31 25-34 pg Mean Corpuscular Hemoglobin Concent 35 32-36 g/dL Red Cell Distribution Width 12.7 10.0-14.5 % Platelet Count 249 130-400 10^3/uL Mean Platelet Volume 8.0 L 9.0-12.2 fL Immature Granulocyte % (Auto) 0 % Neutrophils (%) (Auto) 77 H 42-75 % Lymphocytes (%) (Auto) 15 12-44 % Monocytes (%) (Auto) 6 0-12 % Eosinophils (%) (Auto) 1 0-10 % Basophils (%) (Auto) 0 0-10 % Neutrophils # (Auto) 5.5 1.8-7.8 10^3/uL Lymphocytes # (Auto) 1.1 1.0-4.0 10^3/uL Monocytes # (Auto) 0.4 0.0-1.0 10^3/uL Eosinophils # (Auto) 0.1 0.0-0.3 10^3/uL Basophils # (Auto) 0.0 0.0-0.1 10^3/uL Immature Granulocyte # (Auto) 0.0 0.0-0.1 10^3/uL Prothrombin Time 12.5 12.2-14.7 SEC INR Comment 0.9 0.8-1.4 Activated Partial Thromboplast Time 28 24-35 SEC D-Dimer 0.49 0.00-0.49 UG/ML Sodium Level 139 135-145 MMOL/L Potassium Level 3.0 L 3.6-5.0 MMOL/L Chloride Level 106 98-107 MMOL/L Carbon Dioxide Level 24 21-32 MMOL/L Anion Gap 9 5-14 MMOL/L Blood Urea Nitrogen 15 7-18 MG/DL Creatinine 0.81 0.60-1.30 MG/DL Estimat Glomerular Filtration Rate 93 BUN/Creatinine Ratio 19 Glucose Level 87 70-105 MG/DL Calcium Level 8.4 L 8.5-10.1 MG/DL Corrected Calcium 8.7 8.5-10.1 MG/DL Magnesium Level 1.7 1.6-2.4 MG/DL Total Bilirubin 0.4 0.1-1.0 MG/DL Aspartate Amino Transf (AST/SGOT) 19 5-34 U/L Alanine Aminotransferase (ALT/SGPT) 17 0-55 U/L Alkaline Phosphatase 57 40-136 U/L Myoglobin 32.1 10.0-92.0 NG/ML Troponin I < 0.028 <0.028 NG/ML C-Reactive Protein High Sensitivity 0.13 0.00-0.50 MG/DL Total Protein 6.9 6.4-8.2 GM/DL Albumin 3.6 3.2-4.5 GM/DL (NINA BANSAL MD) Vital Signs/I&O 06/18/22 06/18/22 06/18/22 06/18/22 17:29 17:29 18:54 19:51 Temp 38.0 38.0 38.0 37.4 Pulse 92 93 Resp 23 22 B/P (MAP) 137/96 (110) Pulse Ox 98 98 O2 Delivery Room Air Room Air 06/18/22 20:40 Temp 37.4 Pulse 97 Resp 20 B/P (MAP) 99/66 Pulse Ox 98 O2 Delivery Room Air (NINA BANSAL MD) Blood Pressure Mean: 110 Progress Progress Note : Time: 17:35 Progress Note Patient assessed, will obtain EKG, chest x-ray, labs and give normal saline 1 L per IV. Patient had aspirin prior to arrival. She is complaining of myalgias, will give ibuprofen 800 mg. 1824 cardiac work-up negative. Patient denies chest pain. She is taking water. 1899 patient complains of headache, will give Tylenol 650 mg orally. Blood pressure has decreased (90s/60s) admission, will give second liter of normal saline. Potassium 3.0. Will give oral potassium 20 mill equivalents. 1944 patient reports improvement in headache and body aches. Labs were all normal. Second liter of fluids infused, patient taking water and ice chips. Blood pressure improved 112-120/70-80. HR 80s. Discharge instructions and return precautions reviewed with the patient. (MARCIO MERCADO) Initial ECG Impression Date: Jun 18, 2022 Initial ECG Impression Time: 17:31 Initial ECG Rate: 95 Initial ECG Rhythm: Normal Sinus Initial ECG Intervals: Normal Initial ECG Intervals NV 128, QRST 97, QT 341, QTc 429. [place] P -17, QRS 2, T13. Initial ECG Impression: Normal Initial ECG Comparisson: Unchanged (MARCIO MERCADO) Diagnostic Imaging Diagonstic Imaging: Xray Plain Films/CT/US/NM/MRI: chest Comments NAME: SHANNON VELAZQUEZ [facility] REC#: [id number] PT STATUS: REG ER : 1980 PHYSICIAN: MARCIO MERCADO ADMIT DATE: 06/18/22/ER Draft Date of Exam:06/18/22 CHEST 1 VIEW, AP/PA ONLY INDICATION: Chest pain. COMPARISON: Exam compared to 05/17/2021. FINDINGS: The lungs are clear. There is no failure, effusion, or pneumothorax. IMPRESSION: No acute-appearing abnormality. Dictated on workstation # [id number] Dict: 06/18/[id number] Trans: 06/18/221811 [id number] [id number] Interpreted by: LALITHA DIEZ Electronically signed by: Reviewed: Reviewed by Me (MARCIO MERCADO) Departure Impression Primary Impression: COVID-19 Additional Impression: Myalgia Disposition: 01 HOME, SELF-CARE Condition: Stable Departure-Patient Inst. Decision time for Depature: 19:45 (MARCIO MERCADO) Referrals: [facility] (PCP/Family) Primary Care Physician Patient Instructions: COVID-19 (DC) Add. Discharge Instructions: Rest, increase fluids and ambulate for 5 to 10 minutes every hour while awake. Alternate Tylenol 650 mg and ibuprofen 600 mg every 4 hours. Follow-up with primary care provider if symptoms are not improving or worsen. Return to the emergency department for new, urgent healthcare problems. All discharge instructions reviewed with patient and/or family. Voiced understanding. ATTENDING PHYSICIAN NOTE: I was physically present as attending physician in the emergency department during the care of this patient, but I was not directly involved in the decision making or delivery of care for this patient. (NINA BANSAL MD) MARCIO MERCADO Jun 18, 2022 18:20 NINA BANSAL MD Jun 19, 2022 00:24
[2022-06-18 18:30] LABS: BASOPHILS % (AUTO) 0 % (0-10); EOSINOPHILS # (AUTO) 0.1 10^3/uL (0.0-0.3); EOSINOPHILS % (AUTO) 1 % (0-10); HEMATOCRIT 37 % (35-52); HEMOGLOBIN 12.9 g/dL (11.5-16.0); LYMPHOCYTES # (AUTO) 1.1 10^3/uL (1.0-4.0); LYMPHOCYTES % (AUTO) 15 % (12-44); MEAN CORPUSCULAR HEMOGLOBIN 31 pg (25-34); MEAN CORPUSCULAR HGB CONC 35 g/dL (32-36); MEAN CORPUSCULAR VOLUME 88 fL (80-99); MONOCYTES # (AUTO) 0.4 10^3/uL (0.0-1.0); MONOCYTES % (AUTO) 6 % (0-12); NEUTROPHILS # (AUTO) 5.5 10^3/uL (1.8-7.8); NEUTROPHILS % (AUTO) 77 % (42-75); PLATELET COUNT 249 10^3/uL (130-400); WHITE BLOOD COUNT 7.1 10^3/uL (4.3-11.0)
[2022-06-18] MEDS ORDERED: IBUPROFEN 800 MG (MOTRIN) TAB PO STA (18:30)
[2022-06-18] MEDS ORDERED: NS IV 1000 ML 1,000 ML IV SCH ×2 (18:30→19:45)
[2022-06-18 18:31] LABS: BACTERIA,URINE FEW /HPF; RBC,URINE RARE /HPF
[2022-06-18 18:47] LABS: ALBUMIN 3.6 GM/DL (3.2-4.5); INR 0.9 (0.8-1.4); PROTHROMBIN TIME PATIENT 12.5 SEC (12.2-14.7)
[2022-06-18 18:49] LABS: CALCIUM 8.4 MG/DL (8.5-10.1)
[2022-06-18 18:50] LABS: TOTAL PROTEIN 6.9 GM/DL (6.4-8.2)
[2022-06-18 18:52] LABS: BILIRUBIN,TOTAL 0.4 MG/DL (0.1-1.0)
[2022-06-18 18:54] LABS: CREATININE SERUM 0.81 MG/DL (0.60-1.30)
[2022-06-18 18:56] LABS: MAGNESIUM 1.7 MG/DL (1.6-2.4)
[2022-06-18] MEDS ORDERED: KCL 10 MEQ TAB (MICRO K) PO STA (19:00)
[2022-06-18] MEDS ORDERED: ACETAMINOPHEN 500 MG TAB (TYLENOL) PO STA (19:44)
[2022-06-18 20:40] VITALS: BP 99/66
== END 2022-06-18 20:40 | disposition home or self-care (01) ==
LOC: EDUNIT# 17:27 → ER 17:28
DX: U07.1 COVID-19 (principal); R06.02 Shortness of breath; R05.9 Cough, unspecified; M79.10 Myalgia, unspecified site; F17.210 Nicotine dependence, cigarettes, uncomplicated
CPT/HCPCS: 36415; 71045; 80053; 81000; 83735; 83874; 84484; 85025; 85379; 85610; 85730; 86141; 93005; 93041

== ENCOUNTER 2022-07-17 22:21 | Emergency (ER) | payer SELFPAY ==
[~2022-07-17] VITALS: Ht 149.9 cm; Wt 69.4 kg
[2022-07-17 22:29] VITALS: BP 131/106
--- NOTE | 2022-07-17 22:56 | ED Psychosocial ---
General Chief Complaint: Psych/Social Disorder Stated Complaint: ANXIETY PHYCH ISSUE Nursing Triage Note: PT AMB TO ED BY POV WITH C/O DEPRESSION. PT MOTHER THIS MORNING AND PT HAS BEEN CRYING UNCONTROLLABLY ALL DAY. PT IS URDU SPEAKING AND FRIEND IS INTERPRETTING FOR PT. FRIEND REPORTS THEY HAVE BEEN GIVING PT TYLENOL FOR HER OWUSU, LAST DOSE 1800. FRIEND REPORTS THEY HAVE BEEN UNABLE TO CALM PT ALL DAY. Source: patient Exam Limitations: language barrier History of Present Illness Date Seen by Provider: Jul 17, 2022 Time Seen by Provider: 23:15 Initial Comments Patient is a 52-year-old female who presents to the emergency department with her [id number]-pp-[id number] chief complaint crying, distraught. History and physical exam are facilitated by the [id number] as the patient does not speak Khmer. Apparently the patient's mother early this morning and the [id number] states that the patient has been crying all day long. She has not wanted to communicate with family members. She has not really eaten today. Reportedly the was expected however the patient and her mother were extremely close. Rnxecg-tk-[id number] was concerned that possibly the patient could use a medication to help her past her grief. Patient denies any thoughts of suicide. She does have mild to moderate headache. Does have some mild chest discomfort. Nonradiating. No nausea. No shortness of breath. Timing/Duration: this morning Severity: severe Associated Symptoms: anxiety, other (grief) Allergies and Home Medications Allergies Coded Allergies: No Known Drug Allergies (Verified , 01/13/07) Patient Home Medication List Home Medication List Reviewed: Yes Cyclobenzaprine HCl (Cyclobenzaprine HCl) 10 Mg Tablet, 10 MG PO TID Prescribed by: TAYLOR WORRELL on 01/31/18 1148 Diazepam (Valium) 5 Mg Tablet, 5 MG PO Q8H PRN for MUSCLE SPASMS Prescribed by: MANDEEP AMBRIZ on 06/21/16 185 Prednisone (Prednisone) 20 Mg Tab, 40 MG PO DAILY Prescribed by: TAYLOR WORRELL on 01/31/18 1148 [Flexeril] , (Reported) Entered as Reported by: SERVANDO MOHAN on 06/21/16 183 Review of Systems Constitutional: see HPI EENTM: no symptoms reported Respiratory: no symptoms reported Cardiovascular: chest pain Gastrointestinal: no symptoms reported Genitourinary: no symptoms reported Musculoskeletal: no symptoms reported Skin: no symptoms reported Psychiatric/Neurological: Depressed, Emotional Problems, Headache Past Vurfuqy-Dkmxpp-Znopfs Hx Patient Social History Tobacco Use?: Yes Tobacco type used: Cigarettes Smoking Status: Current Everyday Smoker Use of E-Cig and/or Vaping dev: No Substance use?: No Alcohol Use?: No Pt feels they are or have been: No Immunizations Up To Date Influenza Vaccine Up-to-Date: No; Not Current First/Initial COVID19 Vaccinat: x2 Second COVID19 Vaccination Chepe: x2 Third COVID19 Vaccination Date: 2 WEEKS AGO Seasonal Allergies Seasonal Allergies: No Past Medical History Surgery/Hospitalization HX: depression, htn, fibromyalgia Surgeries: Yes (LEFT ANKLE FX/ORIF) Section, Orthopedic Respiratory: No Cardiac: No Neurological: No Reproductive Disorders: No Kidney Stones Gastrointestinal: No Chronic Constipation Musculoskeletal: No Endocrine: No Cancer: No Psychosocial: Yes Anxiety Integumentary: No Blood Disorders: No Adverse Reaction/Blood Tranf: No Physical Exam Vital Signs - First Documented 07/17/22 22:29 Temp 36.8 Pulse 92 Resp 26 B/P (MAP) 131/106 (114) Pulse Ox 100 O2 Delivery Room Air Capillary Refill : Less Than 3 Seconds Height, Weight, BMI Height: 4'9.00" Weight: 144lbs. oz. [id number]; 30.00 BMI Method:Stated General Appearance: WD/WN, moderate distress (Crying, poor eye contact. Mumbling) HEENT: PERRL/EOMI Neck: full range of motion Respiratory: lungs clear, normal breath sounds, no respiratory distress, no accessory muscle use Cardiovascular: regular rate, rhythm Gastrointestinal: non tender, soft Extremities: normal range of motion, normal inspection Neurologic/Psychiatric: alert, depressed affect (Crying, tearful) Appearance/Memory: no memory impairment Behavior/Eye Contact: avoids eye contact, decreased rate of speech Skin: normal color, warm/dry Progress/Results/Core Measures Results/Orders Vital Signs/I&O Blood Pressure Mean: 114 Progress Progress Note : Time: 23:45 Progress Note Notified by nurse that patient left AMA. Had not received medications. I did not get a chance to speak with patient prior to her and sister in law leaving the department. Departure Impression Primary Impression: Grief reaction Disposition: AGAINST MEDICAL ADVICE Condition: Against Medical Advice Departure-Patient Inst. [facility]errals: [facility] ([facility]Family) Primary Care Physician JOI MARSHALL MD Jul 17, 2022 22:56
[2022-07-17] MEDS ORDERED: KETOROLAC 30 MG/ML VIAL IM ONE (23:30)
[2022-07-17] MEDS ORDERED: LORazepam 1 MG (ATIVAN) TAB PO ONE (23:30)
== END 2022-07-17 23:55 | disposition left against medical advice (07) ==
LOC: EDUNIT# 22:21 → ER 22:25
DX: F43.22 Adjustment disorder with anxiety (principal); F17.210 Nicotine dependence, cigarettes, uncomplicated
CPT/HCPCS: 99281

== ENCOUNTER 2022-10-28 19:35 | Emergency (ER) | payer SELFPAY ==
--- NOTE | 2022-10-28 19:46 | ED Neurological Problem ---
General Stated Complaint: BOTH HANDS/RIGHT LEG NUMBNESS Source: patient Exam Limitations: no limitations History of Present Illness Date Seen by Provider: Oct 28, 2022 Time Seen by Provider: 19:46 Initial Comments Patient is a 42 yo female who presents with her friend, chief complaint of feeling SOB and "not right" concerned that her BP was "high" about 1 hour prior to arrival. She decided to get into the shower to help the feelings and in the shower she had sudden onset of low neck pain that radiated down her back to just about her buttocks. At the same time she developed tingling and spasm in her hands bilaterally as well as pain in her right leg/thigh and tingling in her right foot. She is still having discomfort at about a "5 or 6". She did not take any medications at home for the symptoms. She does have muscle relaxers at home. She has had quite of bit of stress and grief the last 2-3 months over the unexpected of her mother. SHe does become very tearful when talking and relaying history. No fevers/chills, nausea/vomiting. No diarrhea or urinary issues. On OCP's. No recent traumas. Not seeing anyone for her stress/grief. Timing/Duration: 1 hour Severity: moderate Associated Symptoms: numbness in legs/feet (right leg), paresthesia (bilateral hands), trouble walking; No vision changes Allergies and Home Medications Allergies Coded Allergies: No Known Drug Allergies (Verified , 01/13/07) Patient Home Medication List Home Medication List Reviewed: Yes Cyclobenzaprine HCl (Cyclobenzaprine HCl) 10 Mg Tablet, 10 MG PO TID Prescribed by: TAYLOR WORRELL on 01/31/18 1148 Diazepam (Valium) 5 Mg Tablet, 5 MG PO Q8H PRN for MUSCLE SPASMS Prescribed by: MANDEEP AMBRIZ on 06/21/16 1854 Prednisone (Prednisone) 20 Mg Tab, 40 MG PO DAILY Prescribed by: TAYLOR WORRELL on 01/31/18 1148 [Flexeril] , (Reported) Entered as Reported by: SERVANDO MOHAN on 06/21/16 1831 Review of Systems Review of Systems Constitutional: see HPI, malaise Eyes: No Symptoms Reported Ears, Nose, Mouth, Throat: no symptoms reported Respiratory: short of breath Cardiovascular: no symptoms reported Gastrointestinal: no symptoms reported Genitourinary: no symptoms reported Musculoskeletal: back pain, muscle cramps (hands), neck pain Skin: no symptoms reported Psychiatric/Neurological: Numbness, Tingling All Other Systems Reviewed Negative Unless Noted: Yes Past Cepdvse-Lngkad-Gigxln Hx Immunizations Up To Date First/Initial COVID19 Vaccinat: x2 Second COVID19 Vaccination Chepe: x2 Third COVID19 Vaccination Date: 2 WEEKS AGO Seasonal Allergies Seasonal Allergies: No Past Medical History Surgery/Hospitalization HX: depression, htn, fibromyalgia Surgeries: Yes (LEFT ANKLE FX/ORIF) Section, Orthopedic Respiratory: No Cardiac: No Neurological: No Reproductive Disorders: No Kidney Stones Gastrointestinal: No Chronic Constipation Musculoskeletal: No Endocrine: No Cancer: No Psychosocial: Yes Anxiety Integumentary: No Blood Disorders: No Adverse Reaction/Blood Tranf: No Physical Exam Vital Signs Vital Signs - First Documented 10/28/22 19:46 Pulse 92 Resp 18 B/P (MAP) 126/82 (97) Pulse Ox 98 O2 Delivery Room Air Capillary Refill : Height, Weight, BMI Height: 4'9.00" Weight: 144lbs. oz. 65.460247yt; 30.00 BMI Method:Stated General Appearance: WD/WN, mild distress (tearful/anxious appearing) HEENT: PERRL/EOMI Neck: full range of motion, other (tenderness to light palpation of the entire midline spine) Respiratory: lungs clear, normal breath sounds, no respiratory distress, no accessory muscle use Cardiovascular: regular rate, rhythm Gastrointestinal: normal bowel sounds, non tender, soft Extremities: normal range of motion, non-tender, normal inspection, no pedal edema, normal capillary refill Neurologic/Psychiatric: alert, oriented x 3, depressed affect Crainal Nerves: normal hearing, normal speech, PERRL; No abnormal speech, No facial asymmetry, No facial droop, No facial paresthesias, No facial weakness, No tongue deviation to R, No tongue deviation to L Coordination/Gait: normal gait Motor/Sensory: no motor deficit (5/5 strength all muscle groups), no sensory deficit; No sensory deficit; other (neg SLR on the right) Skin: normal color, warm/dry; No rash Stroke Stroke Thrombolytic Exclusion Age 18 or Over: Yes Acute intenal hemorrhage: No History of CVA: No Uncontrolled Coagulation Defec: No Intracranial Hemorrhage: No Severe Hypertension: No GI or Bleed: No Subarachnoid Hemorrhage: No Intracranial Neoplasm/Aneurysm: No Oral Anticoagulants: No Surgery or Trauma: No Puncture of Non-Compressible V: No Recent CPR: No Diabetic Hemorrhagic Retinopat: No Organ Biopsy: No Recent Obstetric Delivery: No Glucose: No Significant Hepatic Dysfunctio: No NIH Stoke Scale >22: No Bacterial Endocarditis: No Pericarditis: No Improving Symptoms: No Platelets: No Progress/Results/Core Measures Results/Orders Lab Results Laboratory Tests Test 10/28/22 19:54 Range/Units White Blood Count 12.9 H 4.3-11.0 10^3/uL Red Blood Count 4.50 3.80-5.11 10^6/uL Hemoglobin 14.0 11.5-16.0 g/dL Hematocrit 41 35-52 % Mean Corpuscular Volume 92 80-99 fL Mean Corpuscular Hemoglobin 31 25-34 pg Mean Corpuscular Hemoglobin Concent 34 32-36 g/dL Red Cell Distribution Width 12.7 10.0-14.5 % Platelet Count 314 130-400 10^3/uL Mean Platelet Volume 8.3 L 9.0-12.2 fL Immature Granulocyte % (Auto) 0 % Neutrophils (%) (Auto) 61 42-75 % Lymphocytes (%) (Auto) 33 12-44 % Monocytes (%) (Auto) 5 0-12 % Eosinophils (%) (Auto) 1 0-10 % Basophils (%) (Auto) 0 0-10 % Neutrophils # (Auto) 7.9 H 1.8-7.8 10^3/uL Lymphocytes # (Auto) 4.2 H 1.0-4.0 10^3/uL Monocytes # (Auto) 0.7 0.0-1.0 10^3/uL Eosinophils # (Auto) 0.1 0.0-0.3 10^3/uL Basophils # (Auto) 0.0 0.0-0.1 10^3/uL Immature Granulocyte # (Auto) 0.0 0.0-0.1 10^3/uL Sodium Level 138 135-145 MMOL/L Potassium Level 3.4 L 3.6-5.0 MMOL/L Chloride Level 107 98-107 MMOL/L Carbon Dioxide Level 21 21-32 MMOL/L Anion Gap 10 5-14 MMOL/L Blood Urea Nitrogen 15 7-18 MG/DL Creatinine 0.89 0.60-1.30 MG/DL Estimat Glomerular Filtration Rate 83 BUN/Creatinine Ratio 17 Glucose Level 244 H 70-105 MG/DL Calcium Level 8.4 L 8.5-10.1 MG/DL Corrected Calcium 8.7 8.5-10.1 MG/DL Total Bilirubin 0.2 0.1-1.0 MG/DL Aspartate Amino Transf (AST/SGOT) 15 5-34 U/L Alanine Aminotransferase (ALT/SGPT) 14 0-55 U/L Alkaline Phosphatase 59 40-136 U/L Total Protein 6.9 6.4-8.2 GM/DL Albumin 3.6 3.2-4.5 GM/DL Serum Test, Qualitative NEGATIVE NEGATIVE My Orders Orders - JOI MARSHALL MD Ed Iv/Invasive Line Start (10/28/22 20:05) Cbc With Automated Diff (10/28/22 20:05) Comprehensive Metabolic Panel (10/28/22 20:05) Hcg,Qualitative Serum (10/28/22 20:05) Ns Iv 1000 Ml (Sodium Chloride 0.9%) (10/28/22 21:04) Ketorolac Injection (Toradol Injection) (10/28/22 21:15) Accucheck Stat ONCE (10/28/22 22:01) Medications Given in ED Current Medications Medications Dose Ordered Sig/Kelly Route Start Time Stop Time Status Last Admin Dose Admin Ketorolac Tromethamine 15 mg ONCE ONCE IVP 10/28/22 21:15 10/28/22 21:16 DC 10/28/22 21:09 15 MG Vital Signs/I&O 10/28/22 19:46 Pulse 92 Resp 18 B/P (MAP) 126/82 (97) Pulse Ox 98 O2 Delivery Room Air Progress Progress Note : Time: 21:23 Departure Impression Primary Impression: Hyperglycemia Additional Impressions: Paresthesia of both hands Paresthesia of lower limb Anxiety Disposition: 01 HOME, SELF-CARE Condition: Improved Departure-Patient Inst. Decision time for Depature: 21:19 Referrals: [facility] (PCP/Family) Primary Care Physician Patient Instructions: Paresthesia (DC), Diabetes and diet Add. Discharge Instructions: Continue your daily medications as prescribed. You can take over the counter Ibuprofen 3 tablets (600mg) every 6 hours with food for back and neck pain. Call the [facility] tomorrow for a follow up appointment about your high Blood Sugar. You will likely need to get started on a pill for Diabetes. Watch your sugar (carbohydrate) intake - avoid simple sugar, white bread, cookie/cakes and sodas. Also talk to your [facility] provider about your Grief/stress about the recent loss of your mom. They have therapists who can help you through the Grief process. Copy Copies To 1: BASIL BARFIELD KATHRYN M MD Oct 28, 2022 19:46
[2022-10-28 20:21] LABS: BASOPHILS % (AUTO) 0 % (0-10); EOSINOPHILS # (AUTO) 0.1 10^3/uL (0.0-0.3); EOSINOPHILS % (AUTO) 1 % (0-10); HEMATOCRIT 41 % (35-52); LYMPHOCYTES # (AUTO) 4.2 10^3/uL (1.0-4.0); LYMPHOCYTES % (AUTO) 33 % (12-44); MEAN CORPUSCULAR HEMOGLOBIN 31 pg (25-34); MEAN CORPUSCULAR HGB CONC 34 g/dL (32-36); MEAN CORPUSCULAR VOLUME 92 fL (80-99); MEAN PLATELET VOLUME 8.3 fL (9.0-12.2); MONOCYTES # (AUTO) 0.7 10^3/uL (0.0-1.0); MONOCYTES % (AUTO) 5 % (0-12); NEUTROPHILS # (AUTO) 7.9 10^3/uL (1.8-7.8); NEUTROPHILS % (AUTO) 61 % (42-75); PLATELET COUNT 314 10^3/uL (130-400); WHITE BLOOD COUNT 12.9 10^3/uL (4.3-11.0)
[2022-10-28 20:31] LABS: ALBUMIN 3.6 GM/DL (3.2-4.5); BILIRUBIN,TOTAL 0.2 MG/DL (0.1-1.0); CALCIUM 8.4 MG/DL (8.5-10.1); CREATININE SERUM 0.89 MG/DL (0.60-1.30); POTASSIUM 3.4 MMOL/L (3.6-5.0); TOTAL PROTEIN 6.9 GM/DL (6.4-8.2)
[2022-10-28] MEDS ORDERED: NS IV 1000 ML 1,000 ML IV STA (21:04)
[2022-10-28] MEDS ORDERED: KETOROLAC 15 MG/ML VIAL IVP ONE (21:15)
[2022-10-28 22:10] VITALS: BP 107/65
== END 2022-10-28 22:10 | disposition home or self-care (01) ==
LOC: EDUNIT# 19:35 → ER 19:37
DX: R73.9 Hyperglycemia, unspecified (principal); F41.9 Anxiety disorder, unspecified; R20.2 Paresthesia of skin
CPT/HCPCS: 36415; 80053; 82947; 84703; 85025